=== PATIENT | female | born 1995 | race African-American/Black ===

== ENCOUNTER 2017-05-12 22:50 | Emergency (ER) | payer BC ==
[~2017-05-12] VITALS: Ht 165.1 cm; Wt 60.0 kg
[~2017-05-12 22:50] MED LIST: Z.0.BCPILL PO
[2017-05-12 22:54] VITALS: BP 121/63; PULSE 91; RESP 15; TEMP 97.6; O2SAT 100
--- NOTE | 2017-05-12 23:29 | PD ---
HPI Chief Complaint: ENT Complaint Time Seen by Provider: 23:18 Travel History International Travel<30 days: No Contact w/Intl Traveler<30days: No Traveled to known affect area: No History of Present Illness HPI Patient is a 21-year-old female here for evaluation of sore throat. She is concerned that she may have strep throat. She has had sore throat for 3 days. She rates it as 4/10. She has taken ibuprofen for it. She states she has seen white spots on her tonsils. There has been no fever. She has had a slight cough but no nasal congestion or runny nose. There has been no vomiting and no diarrhea. She has no rashes. She has no eye redness or eye drainage. Her appetite is normal. Her urine output is normal. She is attending [facility] here from [place]. History Past Medical History Gastrointestinal Disorders: Yes (CYCLIC VOMITING SYNDROME) Hearing: No Immunizations Current: Yes Tetanus Vaccination: < 5 Years Vision or Eye Problem: Yes (GLASSES) ?: Not LMP: 05/12/17 Past Surgical History Other Surgery: Yes (meniscus repair) Social History Attends: School Tobacco Use in Home: No Alcohol Use: Yes (socially) Tobacco Use: No Substance Use: No Allergies-Medications (Allergen,Severity, Reaction): Coded Allergies: No Known Allergies (Unverified , 05/12/17) Reported Meds & Prescriptions Reported Meds & Active Scripts Active Reported Control Pills (Miscellaneous Medication) Tab 1 Tab PO DAILY ROS Except as stated in HPI: all other systems reviewed are Neg Physical Exam Narrative GENERAL APPEARANCE: The patient is a well-developed, well-nourished child in no acute distress. She is pink, alert, smiling and speaking clearly. SKIN: Skin is warm and dry without rashes. There is good turgor. No tenting. HEENT: Throat is mildly erythematous without swelling, lesions or exudate. Uvula is midline. Mucous membranes are moist. Airway is patent. The pupils are equal, round and reactive to light. Extraocular motions are intact. No drainage or injection. Both tympanic membranes are without erythema, dullness or loss of landmarks. No perforation. No nasal congestion. NECK: Full range of motion without discomfort. LUNGS: Good air entry bilaterally with equal breath sounds without wheezes, rales or rhonchi. CHEST: The chest wall is without retractions or use of accessory muscles. HEART: Regular rate and rhythm without murmur. ABDOMEN: Soft, nondistended, nontender with positive active bowel sounds. EXTREMITIES: Full range of motion of all extremities is present. No cyanosis. Capillary refill is less than 2 seconds. NEUROLOGIC: The patient is alert, aware and appropriately interactive with parent and with examiner. Cranial nerves 2 to 12 are grossly intact. Good tone. Data Data Last Documented VS Vital Signs Date Time Temp Pulse Resp B/P Pulse Ox O2 Delivery O2 Flow Rate FiO2 05/12/17 22:54 97.6 91 15 121/63 100 Room Air Orders Group A Rapid Strep Screen (05/12/17 23:23) Strep Culture (Group A) (05/12/17 23:25) [facility] Medical Decision Making Medical Screen Exam Complete: Yes Emergency Medical Condition: Yes Medical Record Reviewed: Yes (No prior ED visit in our system. LWBS once.) Interpretation(s) Rapid group A strep antigen is negative. Throat culture is pending. Differential Diagnosis Strep pharyngitis, viral pharyngitis, tonsillitis, tonsillar abscess, retropharyngeal abscess Narrative Course 21-year-old female with pharyngitis that is most likely viral in etiology. She is well-appearing and well-hydrated. Rapid group A strep antigen is negative. Throat culture is pending. I advised supportive/symptomatic care. Patient's contact number is [phone]. Diagnosis Primary Impression: Pharyngitis Qualified Code: J02.9 - Pharyngitis, unspecified etiology Referrals: Primary Care Physician 1 week Patient Instructions: General Instructions, Pharyngitis (ED) Additional Instructions: Tylenol/Motrin for pain and fever. Salt water gargles as needed. Fluids. Regular diet as tolerated. Return to ER if worsening. Follow up with primary care doctor in 1 week if not better is recommended. Med/Other Pt SpecificInfo: Other (Tylenol/Motrin for pain and fever.) Disposition: 01 DISCHARGE HOME Condition: Stable Dang Arroyo MD May 12, 2017 23:29
== END 2017-05-13 00:47 | disposition home or self-care (01) ==
LOC: NEPA 22:50
DX: J02.9 Acute pharyngitis, unspecified (principal); R05 Cough
CPT/HCPCS: 87081; 87880; 99283